=== PATIENT | male | born 1985 | race African-American/Black ===

== ENCOUNTER 2017-04-04 21:38 | Emergency (ER) | payer OTHER ==
[~2017-04-04] VITALS: Ht 167.6 cm; Wt 83.0 kg
[2017-04-04 21:46] VITALS: BP 141/79
[2017-04-04] MEDS ORDERED: IBUPROFEN 600 MG TAB PO ONE (23:00)
== END 2017-04-04 23:19 | disposition home or self-care (01) ==
LOC: ER 21:38
DX: S60.022A Contusion of left index finger without damage to nail, initial encounter (principal); V49.69XA Unspecified car occupant injured in collision with other motor vehicles in traffic accident, initial encounter; Y93.89 Activity, other specified; Y99.8 Other external cause status; Y92.410 Unspecified street and highway as the place of occurrence of the external cause
CPT/HCPCS: 73140